=== PATIENT | female | born 1970 | race Caucasian/White ===

== ENCOUNTER 2022-06-17 06:48 | Day surgery (SDC) | payer OTHER ==
[~2022-06-17] VITALS: Ht 162.6 cm; Wt 61.6 kg
[2022-06-17] MEDS ORDERED: Prozac20 MG (07:04)
[2022-06-17] MEDS ORDERED: LORA.5 (07:05)
[2022-06-17] MEDS ORDERED: OMEP20ER (07:05)
[2022-06-17] MEDS ORDERED: LOSA25 (07:05)
[2022-06-17] MEDS ORDERED: GABA100 (07:05)
[2022-06-17] MEDS ORDERED: ESZO1 (07:06)
[2022-06-17] MEDS ORDERED: SERT50 (07:06)
[2022-06-17] MEDS ORDERED: Seroquel Xr50 MG (07:06)
--- NOTE | 2022-06-17 07:29 | NUR ---
06/17/22 0729 HANNAH CASTELLANOS TRIED TO PUT THE IV IN BOTH LEFT AND RIGHT HAND AND BOTH INFILTRATED
== END 2022-06-17 08:54 | disposition home or self-care (01) ==
LOC: ORSCSDS 06:48
PROVIDERS: Student in an Organized Health Care Education/Training Program
PROC: 0DBN8ZX Excision of Sigmoid Colon, Via Natural or Artificial Opening Endoscopic, Diagnostic (ICD-10-PCS; principal; 2022-06-17 08:00)
DX: K62.5 Hemorrhage of anus and rectum (principal); D12.5 Benign neoplasm of sigmoid colon; K64.8 Other hemorrhoids; I10 Essential (primary) hypertension; F17.210 Nicotine dependence, cigarettes, uncomplicated; Z79.899 Other long term (current) drug therapy
CPT/HCPCS: 88305; J2704; J7120

== ENCOUNTER 2023-01-29 10:52 | Emergency (ER) | payer OTHER ==
[~2023-01-29] VITALS: Ht 167.6 cm; Wt 63.5 kg
[~2023-01-29 10:52] MED LIST: ESZO1; GABA100; LORA.5; LOSA25; OMEP20ER; Prozac20 MG; SERT50; Seroquel Xr50 MG
[2023-01-29 10:59] VITALS: BP 142/94
== END 2023-01-29 11:43 | disposition home or self-care (01) ==
LOC: ER 10:52
DX: N76.4 Abscess of vulva (principal); F17.290 Nicotine dependence, other tobacco product, uncomplicated
CPT/HCPCS: 10061; 99283-25

== ENCOUNTER 2023-03-26 13:12 | Emergency (ER) | payer OTHER ==
[~2023-03-26] VITALS: Ht 167.6 cm; Wt 61.2 kg
[2023-03-26 13:21] VITALS: BP 144/86
[2023-03-26] MEDS ORDERED: Norco 5-325 Ta1 EACH PO (13:56)
== END 2023-03-26 14:18 | disposition home or self-care (01) ==
LOC: ER 13:12
DX: N76.4 Abscess of vulva (principal)
CPT/HCPCS: 10060; 99282-25

== ENCOUNTER 2023-07-02 10:15 | Emergency (ER) | payer OTHER ==
[~2023-07-02] VITALS: Ht 165.1 cm; Wt 61.7 kg
[~2023-07-02 10:15] MED LIST changes: +Norco 5-325 Ta1 EACH PO
[2023-07-02 10:36] VITALS: BP 135/83
== END 2023-07-02 12:57 | disposition home or self-care (01) ==
LOC: ER 10:15
DX: J06.9 Acute upper respiratory infection, unspecified (principal); Z79.899 Other long term (current) drug therapy
CPT/HCPCS: 71046; 99283-25

== ENCOUNTER → 2024-05-12 | Outpatient (CLI) | payer OTHER | LOC: LAB SHORT 17:25 → LAB 17:25 | DX: R35.0 Frequency of micturition (principal) | CPT/HCPCS: 87086 ==

== ENCOUNTER 2024-05-18 17:30 | Emergency (ER) | payer OTHER ==
[~2024-05-18] VITALS: Ht 167.6 cm; Wt 66.7 kg
[2024-05-18 17:38] VITALS: BP 177/104
== END 2024-05-18 19:29 | disposition left against medical advice (07) ==
LOC: ER 17:30
DX: R07.9 Chest pain, unspecified (principal); Z53.21 Procedure and treatment not carried out due to patient leaving prior to being seen by health care provider
CPT/HCPCS: 71046; 93005; 93010; 99282-25

== ENCOUNTER 2024-07-18 19:44 | Emergency (ER) | payer OTHER ==
[~2024-07-18] VITALS: Ht 167.6 cm; Wt 63.5 kg
[2024-07-18 19:56] VITALS: BP 155/92
[2024-07-18] MEDS ORDERED: Ketorolac Tromethamine 15mg Vial IM ONE (20:00)
[2024-07-18] MEDS ORDERED: Ketorolac Tromethamine 10 MG Tab PO ONE (22:40)
== END 2024-07-18 23:10 | disposition home or self-care (01) ==
LOC: ER 19:44
DX: S82.831A Other fracture of upper and lower end of right fibula, initial encounter for closed fracture (principal); Z79.899 Other long term (current) drug therapy; Z88.8 Allergy status to other drugs, medicaments and biological substances; W06.XXXA Fall from bed, initial encounter
CPT/HCPCS: 29515; 73562-RT; 73610; 96372-59; 99284-25; A9270; J1885

== ENCOUNTER 2024-12-14 16:19 | Emergency (ER) | payer BC, OTHER ==
[~2024-12-14] VITALS: Ht 167.6 cm; Wt 63.5 kg
[2024-12-14 16:38] VITALS: BP 132/101
== END 2024-12-14 16:54 | disposition home or self-care (01) ==
LOC: ER 16:19
DX: F11.90 Opioid use, unspecified, uncomplicated (principal); Z88.8 Allergy status to other drugs, medicaments and biological substances; Z79.899 Other long term (current) drug therapy
CPT/HCPCS: 99281

== ENCOUNTER → 2024-12-27 | Outpatient (CLI) | payer BC, OTHER | LOC: LAB SHORT 17:30 → LAB 17:30 | DX: R30.0 Dysuria (principal) | CPT/HCPCS: 87077; 87086; 87147; 87186 ==

== ENCOUNTER → 2025-04-03 | Outpatient (CLI) | payer BC, OTHER ==
[2025-04-04 10:31] LABS: Candida Group, PCR NOT DETECTED (NOT DETECT); Candida glabrata-krusei, PCR NOT DETECTED (NOT DETECT)
[2025-04-04 11:09] LABS: Bacterial Vaginosis PCR Positive (NEGATIVE)
[2025-04-06 14:24] LABS: HPVG SOURCE Cervical
== END ==
LOC: LAB 18:21 → LAB SHORT 18:21
PROVIDERS: Registered Nurse
DX: Z12.4 Encounter for screening for malignant neoplasm of cervix (principal); N89.8 Other specified noninflammatory disorders of vagina
CPT/HCPCS: 81515; 87624; 87625; G0145

== ENCOUNTER → 2025-06-20 | Outpatient (CLI) | payer BC, OTHER | END | disposition home or self-care (01) | LOC: LAB 08:15 → LAB SHORT 08:15 | DX: R87.610 Atypical squamous cells of undetermined significance on cytologic smear of cervix (ASC-US) (principal); R87.810 Cervical high risk human papillomavirus (HPV) DNA test positive | CPT/HCPCS: 88305 ==

== ENCOUNTER 2025-08-04 12:11 | Day surgery (SDC) | payer BC, OTHER ==
[~2025-08-04] VITALS: Ht 165.1 cm; Wt 68.3 kg
[2025-08-04] MEDS ORDERED: OXYB5 PO (12:31)
[2025-08-04] MEDS ORDERED: DULO60 PO (12:31)
[2025-08-04] MEDS ORDERED: SUBOXONE 8 MG-1 EACH SL (12:33)
[2025-08-04] MEDS ORDERED: FentaNYL Citrate 50 MCG/ML 2 ML Injection ONE (12:56)
--- NOTE | 2025-08-04 12:58 | NUR ---
08/04/25 [id number] ABEL BARNHART RESTING ON GURNEY, RAILS UP, BRAKES LOCKED CALL LIGHT IN REACH
[2025-08-04] MEDS ORDERED: Dexamethasone Sod Phos 10 MG/ML 1ML VIAL ONE (13:14)
[2025-08-04] MEDS ORDERED: Ondansetron HCl 2 MG / ML 2ML Vial ONE (13:14)
[2025-08-04] MEDS ORDERED: Ketorolac Tromethamine 30mg Vial ONE (13:30)
[2025-08-04 14:11] VITALS: BP 150/87
== END 2025-08-04 14:40 | disposition home or self-care (01) ==
LOC: ORSCSDS 12:11
PROVIDERS: Obstetrics & Gynecology
PROC: 0UBC7ZX Excision of Cervix, Via Natural or Artificial Opening, Diagnostic (ICD-10-PCS; principal; 2025-08-04 13:15)
DX: N87.0 Mild cervical dysplasia (principal); I10 Essential (primary) hypertension; Z79.899 Other long term (current) drug therapy; F17.290 Nicotine dependence, other tobacco product, uncomplicated
CPT/HCPCS: 88305; A9270; J1100; J1885; J2003; J2405; J2704; J3010; J7120

== ENCOUNTER → 2025-08-23 | Outpatient (CLI) | payer BC, OTHER ==
[~2025-08-23] MED LIST changes: +DULO60 PO; +OXYB5 PO; +SUBOXONE 8 MG-1 EACH SL
[2025-08-23 15:01] LABS: Bacterial Vaginosis PCR Positive (NEGATIVE); Candida Group, PCR NOT DETECTED (NOT DETECT); Candida glabrata-krusei, PCR NOT DETECTED (NOT DETECT)
== END | disposition home or self-care (01) ==
LOC: LAB SHORT 10:12
PROVIDERS: Obstetrics & Gynecology
DX: N89.8 Other specified noninflammatory disorders of vagina (principal)
CPT/HCPCS: 81515